=== PATIENT | male | born 1940 | race Caucasian/White ===

== ENCOUNTER 2019-05-26 19:57 | Emergency (ER) | payer MEDICARE, OTHER ==
[~2019-05-26] VITALS: Ht 177.8 cm; Wt 63.5 kg
[2019-05-26] MEDS ORDERED: BUDE6HFA INH (20:16)
[2019-05-26] MEDS ORDERED: PRED10 PO (20:17)
[2019-05-26] MEDS ORDERED: ATOR20 PO (20:19)
[2019-05-26] MEDS ORDERED: PROBIOTIC1 EAC1 PO (20:19)
[2019-05-26] MEDS ORDERED: PRED20 PO (20:21)
[2019-05-26] MEDS ORDERED: Cartia Xt240 MG PO (20:21)
[2019-05-26] MEDS ORDERED: WARF5 PO (20:21)
[2019-05-26] MEDS ORDERED: CEFD300 PO (20:22)
[2019-05-26] MEDS ORDERED: AZIT250 PO (20:23)
[2019-05-26] MEDS ORDERED: Perforomis20 MCG/2 M INH (20:26)
[2019-05-26] MEDS ORDERED: Budesonide0.5 MG/2 M INH (20:26)
[2019-05-26] MEDS ORDERED: ALBU2.5V5 NEB (20:27)
[2019-05-26] MEDS ORDERED: ATHLETE'S FOO35.4 GM TOP (20:44)
[2019-05-26] MEDS ORDERED: Bactrim Ds Tab1 EACH PO (20:44)
== END 2019-05-26 21:24 | disposition home or self-care (01) ==
LOC: ER 19:57
DX: L03.116 Cellulitis of left lower limb (principal); B35.3 Tinea pedis; Z88.0 Allergy status to penicillin; Z79.899 Other long term (current) drug therapy; Z79.52 Long term (current) use of systemic steroids; Z79.01 Long term (current) use of anticoagulants; J44.9 Chronic obstructive pulmonary disease, unspecified; I48.91 Unspecified atrial fibrillation; Z87.891 Personal history of nicotine dependence; Z85.118 Personal history of other malignant neoplasm of bronchus and lung
CPT/HCPCS: 93005; 93010; 99283-25